=== PATIENT | male | born 1965 | race Caucasian/White ===

== ENCOUNTER 2016-11-02 19:35 | Emergency (ER) | payer OTHER ==
[~2016-11-02] VITALS: Ht 170.2 cm; Wt 82.0 kg
[~2016-11-02 19:35] MED LIST: ALBU8.5H5 INH; AMOX1TAB61 PO; DIAZ5TAB PO; DULO20CA45 PO; DULO30CA2 PO; DUO-NEB; ENOX40SY4 SQ; FERR325T18 PO; FLUT1DIS3 INH; HYDR1AMP IVPush; LEVO25TA2 PO; MULT-484 PO; MULT-6 PO; OMEP20TA62 PO; OXYC15TA60 PO; OXYC1TAB7 PO; OXYC5TAB3 PO; PANT40TA3 PO; PREG25CA PO; PROM25AM6 IM; SENN1TAB7 PO
[2016-11-02] MEDS ORDERED: PLEASE ENTER HEIGHT AND WEIGHT MC SCH (20:00)
[2016-11-02] MEDS ORDERED: SODIUM CHLORIDE 0.9% 1,000ML IVBOLUS ONE (20:00)
[2016-11-02 20:14] LABS: HEMATOCRIT 45.4 % (39.2-51.8); HEMOGLOBIN 15.5 g/dL (13.7-18.0); WHITE BLOOD COUNT 9.6 x10^3/uL (3.4-10)
[2016-11-02 20:27] LABS: BLOOD UREA NITROGEN 18 mg/dL (7-18)
[2016-11-02 20:37] LABS: IS PT STATUS REG ER OR PRE ER? YES
[2016-11-02] MEDS ORDERED: OMNIPAQUE 350 MG/ML, 100ML BOTTLE ONE (21:00)
[2016-11-02 21:05] LABS: DAU SCREEN DISCLAIMER
[2016-11-02] MEDS ORDERED: NAPR500T3 PO (21:11)
[2016-11-02] MEDS ORDERED: DULO30CA2 PO (21:11)
[2016-11-02] MEDS ORDERED: BUPR1TAB SL (21:11)
[2016-11-02] MEDS ORDERED: FLUT1DIS3 INH (21:11)
[2016-11-02] MEDS ORDERED: AMOX1TAB61 PO (21:11)
[2016-11-02] MEDS ORDERED: PREG75CA PO (21:11)
[2016-11-02] MEDS ORDERED: TRIA1CAP3 PO (21:11)
[2016-11-02 22:05] VITALS: BP 121/81
== END 2016-11-02 22:08 | disposition home or self-care (01) ==
LOC: ED 21:43
DX: F10.120 Alcohol abuse with intoxication, uncomplicated (principal); I10 Essential (primary) hypertension; J45.909 Unspecified asthma, uncomplicated; K21.9 Gastro-esophageal reflux disease without esophagitis
CPT/HCPCS: 36415; 71010; 71275; 80048; 80307; 81003; 82040; 84443; 84484; 85025; 85379; 93005; 96360; 99285; J7030; Q9967

== ENCOUNTER → 2017-07-04 | Outpatient (CLI) | payer OTHER ==
[~2017-07-04] MED LIST changes: +BUPR1TAB SL; +FENTANYL PF 100 MCG/2ML ONE; +FLUMAZENIL 0.1 MG/1 ML, 5ML ONE; +MIDAZOLAM 1 MG/ML, 5ML ONE; +NALOXONE 1 MG/ML, 2ML ONE; +NAPR-685 PO; +PREG75CA PO; +TRIA1CAP3 PO
== END | disposition home or self-care (01) ==
LOC: RAD 13:50
PROVIDERS: ATTEND Physical Medicine & Rehabilitation
DX: M51.16 Intervertebral disc disorders with radiculopathy, lumbar region (principal); M48.061 Spinal stenosis, lumbar region without neurogenic claudication
CPT/HCPCS: 72148; 99156; 99157; J2250; J3010; J2310

== ENCOUNTER 2018-09-19 12:57 | Outpatient (CLI) | payer OTHER | END 2018-09-19 23:59 | disposition home or self-care (01) | LOC: STAR 12:57 | PROVIDERS: ATTEND Thoracic Surgery (Cardiothoracic Vascular Surgery) | DX: Z02.9 Encounter for administrative examinations, unspecified (principal) ==

== ENCOUNTER 2018-09-24 09:03 | Observation (INO) | payer OTHER ==
[~2018-09-24] VITALS: Ht 172.7 cm; Wt 101.3 kg
[~2018-09-24 09:03] MED LIST changes: +ALBU18HF INH; +ALLO100T30 PO; +AZEL137S4 NAS; +B CO1TAB14 PO; +BANA1POW PO; +BREO INH; +BUPIVACAINE/PF-EPI 0.5% 1:200K ONE; +CHOL231P PO; +CHOL500045 PO; +DICL75TA3 PO; +DIPH25CA61 PO; +FENO160T PO; -FENTANYL PF 100 MCG/2ML ONE; -FLUMAZENIL 0.1 MG/1 ML, 5ML ONE; +FOLI-17 PO; +IPRA3AMP30 NEB; +LEVO25TA4 PO; -MIDAZOLAM 1 MG/ML, 5ML ONE; -NALOXONE 1 MG/ML, 2ML ONE; +OMEGA 3 ETHYL PO; +RANI150T4 PO; +SENN-177 PO; -SENN1TAB7 PO; +SUCR1TAB PO
[2018-09-24] MEDS ORDERED: LACTATED RINGERS 1,000 ML IV SCH (09:33)
[2018-09-24 09:37] VITALS: BP 135/93
[2018-09-24] MEDS ORDERED: ACETAMINOPHEN 500 MG TABLET PO ONE (10:00)
[2018-09-24] MEDS ORDERED: GABAPENTIN 300 MG CAPSULE PO ONE (10:00)
[2018-09-24] MEDS ORDERED: SCOPOLAMINE PATCH, 1.5MG PATCH.TD72 TD ONE (10:00)
[2018-09-24] MEDS ORDERED: MIDAZOLAM 1 MG/ML, 2ML ONE (10:46)
[2018-09-24] MEDS ORDERED: FENTANYL PF 250 MCG/5ML ONE (10:46)
[2018-09-24] MEDS ORDERED: PROPOFOL 10 MG/ML, 20ML ONE (11:56)
[2018-09-24] MEDS ORDERED: CEFAZOLIN 1,000 MG ONE (11:56)
[2018-09-24] MEDS ORDERED: DEXAMETHASONE 4 MG/ML, 1ML ONE (11:56)
[2018-09-24] MEDS ORDERED: SUCCINYLCHOLINE 20 MG/ML, 10ML ONE (11:56)
[2018-09-24] MEDS ORDERED: GLYCOPYRROLATE 0.2MG/1ML, 5ML ONE (11:56)
[2018-09-24] MEDS ORDERED: hydrALAzine 20 MG/ML, 1ML ONE ×2 (11:56→14:15)
[2018-09-24] MEDS ORDERED: ONDANSETRON 2MG/ML, 2ML ONE (11:56)
[2018-09-24] MEDS ORDERED: KETOROLAC 30 MG/1 ML IV PRN ×2 (12:30→14:00)
[2018-09-24] MEDS ORDERED: ONDANSETRON 2MG/ML, 2ML IVPush PRN ×2 (12:30→14:00)
[2018-09-24] MEDS ORDERED: FENTANYL PF 100 MCG/2ML IV PRN (12:30)
[2018-09-24] MEDS ORDERED: OXYcodone 5 MG/5 ML ORAL.SOL UDC PO PRN (12:30)
[2018-09-24] MEDS ORDERED: MEPERIDINE/PF 25MG/0.5ML IVPush PRN (12:30)
[2018-09-24] MEDS ORDERED: hydrALAzine 20 MG/ML, 1ML IV PRN ×2 (12:30→14:00)
[2018-09-24] MEDS ORDERED: METOCLOPRAMIDE 5 MG/ML, 2ML IV PRN (12:30)
[2018-09-24] MEDS ORDERED: ALBUTEROL SULFATE 2.5 MG/3 ML NPPB PRN (12:30)
[2018-09-24] MEDS ORDERED: PROMETHAZINE 25 MG/ML, 1ML IV PRN (12:30)
[2018-09-24] MEDS ORDERED: MEPERIDINE/PF 25MG/ML,1ML ONE (13:49)
[2018-09-24] MEDS ORDERED: HYDROmorphone 2 MG/ML, 1ML ONE (13:50)
[2018-09-24] MEDS ORDERED: OXYcodone 5 MG/5 ML ORAL.SOL UDC ONE (13:50)
[2018-09-24] MEDS ORDERED: LORazepam 2 MG/ML, 1ML IV PRN (14:00)
[2018-09-24] MEDS ORDERED: ENALAPRILAT 1.25 MG/ML, 2ML IV PRN (14:00)
[2018-09-24] MEDS ORDERED: DIPHENHYDRAMINE 50 MG/ML, 1ML IV PRN (14:00)
[2018-09-24] MEDS ORDERED: HYDROcodone/APAP 7.5-325MG/15ML UDC PO PRN (14:00)
[2018-09-24] MEDS ORDERED: PROMETHAZINE 25 MG/ML, 1ML IM PRN (14:00)
[2018-09-24] MEDS ORDERED: TEMPLATE NON-FORMULARY MED. (Albuterol Sulfate** (Albuterol Sulfate Hfa**) 2 PUFF(S)) INH SCH (14:00)
[2018-09-24] MEDS ORDERED: PROMETHAZINE 12.5 MG SUPP PR PRN (14:00)
[2018-09-24] MEDS ORDERED: morphine SULFATE 10 MG/ML, 1ML IV PRN (14:00)
[2018-09-24] MEDS ORDERED: ALBUTEROL/IPRATROPIUM 2.5MG/0.5MG, 3 ML NEB SCH (14:00)
[2018-09-24] MEDS ORDERED: DIAZEPAM 5 MG/ML, 2ML ONE (14:03)
[2018-09-24] MEDS ORDERED: KETOROLAC 30 MG/1 ML ONE (14:03)
[2018-09-24] MEDS: HYDROmorphone 1 MG/ML, 1ML INJ IV PRN ×3 (14:04→14:29)
[2018-09-24] MEDS: DIAZEPAM 5 MG/ML, 2ML IV PRN ×2 (14:09→14:23)
[2018-09-24] MEDS: LABETALOL 5MG/ML, 20ML IV PRN ×2 (14:37→14:42)
[2018-09-24] MEDS: FAMOTIDINE 20 MG/2 ML IV SCH (17:04)
[2018-09-24 19:56] VITALS: BP 139/80
[2018-09-24] MEDS: LACTATED RINGERS 1,000 ML IV SCH (22:30)
[2018-09-25 00:09] VITALS: BP 140/85
[2018-09-25] MEDS ORDERED: HYDR-3240 PO (01:28)
[2018-09-25] MEDS: LACTATED RINGERS 1,000 ML IV SCH (01:51)
[2018-09-25 04:42] VITALS: BP 145/87
[2018-09-25] MEDS: FAMOTIDINE 20 MG/2 ML IV SCH (04:51)
[2018-09-25 06:42] VITALS: BP 143/92
[2018-09-25] MEDS ORDERED: LEVOTHYROXINE 25 MCG TABLET PO SCH (09:00)
[2018-09-25] MEDS ORDERED: ALLOPURINOL 100 MG TABLET PO SCH (09:00)
[2018-09-25] MEDS ORDERED: ENOXAPARIN 40 MG/0.4 ML SQ SCH (09:00)
[2018-09-25] MEDS ORDERED: FENOFIBRATE 145 MG TABLET PO SCH (09:00)
== END 2018-09-25 12:00 | disposition home or self-care (01) ==
LOC: OUT 09:03 → ORIP 13:43 → 4NOR 15:11
PROVIDERS: ADMIT Thoracic Surgery (Cardiothoracic Vascular Surgery); ATTEND Thoracic Surgery (Cardiothoracic Vascular Surgery)
DX: K44.9 Diaphragmatic hernia without obstruction or gangrene (principal); K21.0 Gastro-esophageal reflux disease with esophagitis; E03.9 Hypothyroidism, unspecified; Z79.899 Other long term (current) drug therapy
CPT/HCPCS: 43282; 96372; 96374; 96375; 96376; G0378; J0330; J0360; J0690; J1100; J1170; J1200; J1650; J1885; J2175; J2250; J2405; J2704; J3010; J3360; J3490; J7120; Q4116